=== PATIENT | male | born 1960 | race Caucasian/White ===

== ENCOUNTER 2017-12-19 15:10 | Emergency (ER) | payer OTHER ==
[~2017-12-19] VITALS: Ht 160 cm; Wt 61.2 kg
[2017-12-19 15:19] VITALS: Ht 160 cm; Wt 61.2 kg
[2017-12-19 18:11] LABS: AMPHETAMINE QUAL UR POSITIVE (NEG <=1000)
[2017-12-19 18:54] VITALS: BP 146/94
== END 2017-12-19 18:55 | disposition left against medical advice (07) ==
LOC: ED 15:10
PROVIDERS: Emergency Medicine
DX: T63.441A Toxic effect of venom of bees, accidental (unintentional), initial encounter (principal); R51 Headache; M54.2 Cervicalgia; R53.1 Weakness; Y92.89 Other specified places as the place of occurrence of the external cause
CPT/HCPCS: G0480; J0171; J1200; J2930; J3490

== ENCOUNTER 2018-03-09 21:38 | Emergency (ER) | payer OTHER ==
[~2018-03-09] VITALS: Ht 162.6 cm; Wt 65.3 kg
[2018-03-09 21:50] VITALS: Ht 162.6 cm; Wt 65.3 kg
[2018-03-09 22:55] LABS: BASOPHIL % 0.7 % (0-2); PLATELET COUNT 339 x10^3mcL (130-400); RED CELL DISTRIBUTION WIDTH 13.3 % (11.5-14.5)
[2018-03-09 23:07] LABS: CALCIUM 9.1 mg/dL (8.5-10.1); CARBON DIOXIDE 32.2 mmol/L (21-32); CHLORIDE SERUM 101 mmol/L (98-107); CREATININE SERUM 0.8 mg/dL (0.7-1.3); GFR1 > 60 mL/min; GLUCOSE SERUM 136 mg/dL (74-106); POTASSIUM SERUM 3.7 mmol/L (3.5-5.1); SODIUM SERUM 142 mmol/L (136-145)
[2018-03-09 23:12] LABS: ALBUMIN 3.7 g/dL (3.4-5.0); ALKALINE PHOSPHATASE 83 U/L (46-116); ALT/SGPT 30 U/L (16-63); AMYLASE 52 U/L (25-115); AST/SGOT 21 U/L (15-37); BILIRUBIN TOTAL 0.5 mg/dL (0.20-1.00); LIPASE 103 IU/L (73-393); TOTAL PROTEIN, SERUM 7.6 g/dL (6.4-8.2)
[2018-03-10 01:03] VITALS: BP 145/72
== END 2018-03-10 00:40 | disposition home or self-care (01) ==
LOC: ED 21:38
PROVIDERS: Emergency Medicine
DX: R10.13 Epigastric pain (principal)
CPT/HCPCS: 83880; C9113; J2405; J2765; J3490; J7030

== ENCOUNTER 2018-12-01 21:02 | Inpatient (IN) | payer MEDICAID ==
[~2018-12-01] VITALS: Ht 162.6 cm; Wt 65.1 kg
[2018-12-01 21:06] VITALS: Ht 162.6 cm; Wt 65.1 kg
--- NOTE | 2018-12-01 21:32 | NUR ---
PT PRESENTS TO ER TODAY WITH C/O OF WEAKNESS. PT REPORTS HE FELL AND HIT HIS HEAD AT APPROX 1930 TODAY. PT DENIES LOC AND REPORTS HE FELL DUE TO WEAKNESS. PT ALSO REPORTING DARK BLACK DIARHEA X3 TODAY ALONG WITH VOMITING ALL DAY, UNKNOWN AMOUNT OF TIMES. PT NOT REPORTING ANY PAIN AT THIS TIME BUT REPORTS CP, AND EPIGASTIC PAIN EARLIER TODAY. PT LUNGS SOUNDS ARE CLEAR BILATERALLY IN ALL LOBES ON ASCULTATION. PT APPEARS PALE BUT WARM TO THE TOUCH. PT PLACED ON FULL SAP TECHNICAL ARCHITECT. PT IS A/O X4. RESP EQUAL AND UNLABORED. NO ACUTE DISTRESS NOTED. PT DENIES HX OF GI BLEEDING.
[2018-12-01 22:43] LABS: BASOPHIL % 0.1 % (0-2); PLATELET COUNT 268 x10^3mcL (130-400); RED CELL DISTRIBUTION WIDTH 14.2 % (11.5-14.5)
[2018-12-01 22:47] LABS: rbc morphology (normal/abnorm) ABNORMAL (NORMAL)
[2018-12-01 22:51] LABS: CALCIUM 7.2 mg/dL (8.5-10.1); CARBON DIOXIDE 25.8 mmol/L (21-32); CHLORIDE SERUM 101 mmol/L (98-107); CREATININE SERUM 1.5 mg/dL (0.7-1.3); GFR1 51 mL/min; GLUCOSE SERUM 98 mg/dL (74-106); POTASSIUM SERUM 3.3 mmol/L (3.5-5.1); SODIUM SERUM 136 mmol/L (136-145)
--- NOTE | 2018-12-01 23:02 | NUR ---
PT PROVIDED WITH WATER, OKAYED BY DR SOL.
[2018-12-01 23:05] LABS: ALKALINE PHOSPHATASE 47 U/L (46-116); ALT/SGPT 16 U/L (16-63); AST/SGOT 17 U/L (15-37); BILIRUBIN TOTAL 0.2 mg/dL (0.20-1.00); LIPASE 76 IU/L (73-393)
[2018-12-01 23:13] LABS: ALBUMIN 2.2 g/dL (3.4-5.0)
--- NOTE | 2018-12-01 23:44 | NUR ---
EMERGENCY BLOOD O NEGATIVE INFUSION STARTED PER DR. SOL ORDER DUE TO CRITICAL HGB 5.6 AND HCT 16.
[2018-12-02] VITALS (8 sets, daily range): BP systolic 96–125; BP diastolic 49–72
[2018-12-02 00:08] LABS: CHOLESTEROL/HDL RATIO 3.5; MAGNESIUM 1.9 mg/dL (1.8-2.4); PHOSPHOROUS 4.7 mg/dL (2.5-4.9)
[2018-12-02 00:15] LABS: microscopic required? NO
[2018-12-02 00:17] LABS: FREE T4 1.51 ng/dL (0.76-1.46); FREE THYROXINE INDEX 3.2 ug/dL (1.4-4.5); T4(THYROXINE) 8.3 ug/dL (4.7-13.3)
[2018-12-02 00:26] LABS: urine erythrocyte NEGATIVE (NEGATIVE)
[2018-12-02 00:34] LABS: AMPHETAMINE QUAL UR POSITIVE (See below)
[2018-12-02 00:38] LABS: T3 TOTAL 0.33 ng/mL
--- NOTE | 2018-12-02 00:49 | NUR ---
PT STATES TO FEELING ALOT A BETTER AT THIS TIME. PT HAS REGAINED A LOT OF STRENGTH, ABLE TO HOLD PEN AND DRAW, NO LONGER SHAKY WHEN WRITING.
--- NOTE | 2018-12-02 01:12 | NUR ---
SUMMONED TO PT BEDSIDE BY PT. PT AWAKE AND ALERT, ASKING FOR SOMETHING TO EAT. REVIEW OF RECORDS SHOWS PT IS NPO AT THIS TIME BY ORDER OF ADMITTING DOCTOR. EXPLAINED TO PATIENT. PT VERBALIZED UNDERSTANDING AND REPORTED FRUSTRATION. EMPATHY OFFERED. PT COOPERATIVE WITH PLAN OF CARE.
--- NOTE | 2018-12-02 01:36 | NUR ---
BLOOD TRANSFUSION STARTED; VERIFIED WITH REGIS ROONEY.
--- NOTE | 2018-12-02 02:20 | NUR ---
RECEIVED PT FROM ER VIA GURFRANCISCA ACCOMPANIED WITH NURSE AND EMT, PT SEEN, ALERT AND ORIENTED X 4, C/O OF DIZZINESS BIT DENIES HEADACHE, BREATHING EVEN AND UNLABORED, ON ROOM AIR WITH NO RESP DISTRESS NOTED, SPO2:100% ON ROOM AIR, ON CARE PARTNER WITH ST, DENIES CHEST PAIN, PROTONIX DRIP INFUSING @ 10 ML/HR TO LAC, BLOOD TRANSFUSION ON GOING @ 150 ML/HR TO RAC, NO S&S OF ADVERSE REACTION, GENERALIZED WEAKNESS, SIDE RAILS UP, ABD SOFT AND FLAT WITH ACTIVE BS, LAST BM WAS BLACK STOOL PRIOR ARRIVE IN ED, VOIDING FREELY WITH URINAL, NO OPEN PRESSURE INJURY NOTED, NO DISTRESS NOTED, WILL KEEP TO MONITOR.
--- NOTE | 2018-12-02 03:50 | NUR ---
BLOOD TRANSFUSION COMPLETED, VSS, NO S&S OF ADVERSE REACTION NOTED.
[2018-12-02 05:38] LABS: CALCIUM 7.2 mg/dL (8.5-10.1); CARBON DIOXIDE 28.2 mmol/L (21-32); CHLORIDE SERUM 103 mmol/L (98-107); CREATININE SERUM 1.3 mg/dL (0.7-1.3); GFR1 > 60 mL/min; GLUCOSE SERUM 100 mg/dL (74-106); MAGNESIUM 1.9 mg/dL (1.8-2.4); PHOSPHOROUS 3.9 mg/dL (2.5-4.9); POTASSIUM SERUM 4.1 mmol/L (3.5-5.1); SODIUM SERUM 137 mmol/L (136-145)
[2018-12-02 05:45] LABS: BASOPHIL % 0.2 % (0-2); PLATELET COUNT 252 x10^3mcL (130-400); RED CELL DISTRIBUTION WIDTH 14.3 % (11.5-14.5)
--- NOTE | 2018-12-02 07:05 | NUR ---
REPORT GIVEN TO WALLY-NEVIN, ALL QUESTIONS ANSWERED AND CONCERNS ADDRESSED.
--- NOTE | 2018-12-02 07:58 | NUR ---
RECIEVED PT IN BED WATCHING TV. A/O X 4 AND ABLE TO MAKE NEEDS KNOWN. BAG REPAIRER SHOWING SINUS ARRHYTHMIA/SINUS RHYTHM; NIBP 109/60 MAP 77 HR 98. BREATHING EVEN AND UNLABORED ON ROOM AIR. PT REPORTS "HUNGER PAINS" AND STATES HE HASNT EATEN IN 8 DAYS DUE TO FEELING ILL. PT EDUCATED ON REASIONING FOR NPO ORDER. NO ACTIVE BLEEDING NOTED. PROTONIX DRIP AT 10ML/HR INFUSING VIA RAC. NS AT 100ML/HR INFUSING VIA IV TO LAC. PT CALM AND COOPERATIVE WITH ALL CARE. CALL LIGHT IN REACH. WILL CONT TO MONITOR.
--- NOTE | 2018-12-02 12:35 | NUR ---
DR. GAMBOA AND GI TEAM AT BEDSIDE FOR EGD.
--- NOTE | 2018-12-02 14:57 | NUR ---
PT TRANSFERRED TO [facility] 210 A WITHOUT INCIDENT, RN UYNG AT BEDSIDE TO ACCEPT PT. ALL CARE ENDORSED.
--- NOTE | 2018-12-02 14:58 | NUR ---
RECEIVED PT FROM ICU BY JOSELINE. PT AA/OX4. NO S/S OF ACUTE DISTRESS. DENIES PAIN. NO SOB ON ROOM AIR. RR EVEN/UNLABORED. CHEST EXP. SYMMETRICAL. NO CARTER. NO DIZZINESS. NO CHEST PAIN. IVS WNL TO LAC/RAC. NO REDNESS, NO SWELLING, NO INFILTRATION. PATENT. NO N/V. NO ABD. PAIN. VS STABLE. PT ORIENTED TO SURROUNDINGS. PT USES URINAL TO VOID, URINE CLEAR/YELLOW. BED IN LOW POSITION. CALL LIGHT WITHIN REACH. WILL CONT. TO MONITOR.
--- NOTE | 2018-12-02 18:41 | NUR ---
PT SITTING IN BED, AA/OX4. NO COMPLAINT OF PAIN. NO SOB ON ROOM AIR. NO ABD. PAIN. NO N/V. NO CHEST PAIN. NO SOB ON ROOM AIR. NO BLEEDING AT THIS TIME. PT HAS NOT HAD BM, UNABLE TO COLLECT OCCULT BLOOD SAMPLE. IVS WNL TO RAC/LAC. PATENT. NO REDNESS, NO SWELLING, NO INFILTRATION. IV FLUIDS FLOWING. BED IN LOW POSITION. CALL LIGHT WITHIN REACH. WILL CONT. TO MONITOR.
--- NOTE | 2018-12-02 20:22 | NUR ---
PATIENT RECEIVED IN BED AWAKE,ALERT AND ORIENTED X4, SPEECH CLEAR, DENIES DIZZINESS NOR HEADACHE. BREATHING EVEN AND UNLABORED BS CLEAR,FOUND ON ROOM AIR SAT 97-98%. DENIES CHEST PAINS, TELE#10 SR-ST, HR RANGES FROM HIGH 80"S TO HIGH 100'S.IV SITES - LAC WITH PROTONIX GTT INFUSING AT 8MG/HR ( 10ML/HR) SITE PATENT AND INTACT. RT AC IVF INFUSING AT 100ML/HR. PATIENT DENIES ABDOMINAL DISCOMFORTS NOR PAIN, DENIED N/V/D, TOLERATING CLEAR LIQUID DIET, S/P EGD POST DX; DUODENAL ULCER. VOIDING FREELY, DENIES PAIN UPON URINATION. AMBULATORY WITH STEADY GAIT,PATIENT STILL COMPLAINED OF MILD GENERALIZED WEAKNESS.SAFETY/FALL PRECAUTIONS MAINTAINED. WILL CONTINUE TO MONITOR.
--- NOTE | 2018-12-02 21:23 | NUR ---
INFORMED RE POSITIVE RESULT OF H-PYLORI,HE STATED NO NEED FOR ATB.HE WILL JUST GIVE PRESCRITION ON DISCHARGE.PRIMARY RN INFORMED.
--- NOTE | 2018-12-02 22:04 | NUR ---
GAVE PATIENT MEDICATIONS AND PROVIDED TEACHING. TOLERATED WELL. PATIENT COMPLAINED OF ABDOMINAL PAIN 05/25. MEDICATED. CALL LIGHT WITHIN REACH. INSTRUCTED PATIENT TO NOTIFY NURSE WHEN HE HAS BM, TO COLLECT SAMPLE.
--- NOTE | 2018-12-02 23:03 | NUR ---
PATIENT SLEEPING QUIETLY EASILY AWAKEN STATED PAIN IS BETTER AT 2/10.
--- NOTE | 2018-12-03 03:31 | NUR ---
patient had bm, stool was black and soft, collected and send to lab.offered no complaints.
[2018-12-03 04:26] VITALS: BP 103/61
[2018-12-03 06:05] VITALS: BP 118/73
--- NOTE | 2018-12-03 06:36 | NUR ---
PATIENT SLEPT OFF AND ON DURING THE SHIFT,.NO DIZZINESS NOR SYNCOPAL EPISODE, AMBULATED TO THE BR WITH STEADY GAIT. HAD X2 BLACK SEMI SOFT STOOL, SPECIMEN COLLECTED AND SEND TO LAB. IV SITES NO SIGN OF INFILTRATION.SAFETY/FALL PRECAUTIONS MAINTAINED. WILL ENDORSE CONTINUITY OF CARE TO INCOMING NURSE.
[2018-12-03 06:39] LABS: CALCIUM 7.6 mg/dL (8.5-10.1); CARBON DIOXIDE 26.4 mmol/L (21-32); CHLORIDE SERUM 107 mmol/L (98-107); GFR1 > 60 mL/min; GLUCOSE SERUM 93 mg/dL (74-106); POTASSIUM SERUM 4.2 mmol/L (3.5-5.1); SODIUM SERUM 139 mmol/L (136-145)
[2018-12-03 07:24] LABS: BASOPHIL % 0.4 % (0-2); PLATELET COUNT 258 x10^3mcL (130-400)
[2018-12-03 07:28] LABS: RED CELL DISTRIBUTION WIDTH 14.7 % (11.5-14.5)
--- NOTE | 2018-12-03 08:37 | NUR ---
PATIENT ALERT AND ORIENTED X4, SPEECH CLEAR,DENIES DIZZINESS NOR HEADACHE. BREATHING EVEN AND UNLABORED BS CLEAR ALL RUIZ, ON ROOM AIR. SAFETY 99%. DENIED CHEST PAINS, HR=99BPM. IV SITE NO SIGN OF INFILTRATION.NO ACTIVE BLEEDING AT THIS TIME. OFFERED NO COMPLAINT OF ABDOMINAL PAIN. SAFETY/FALL PRECAUTIONS MAINTAINED. WILL CONTINUE TO MONITOR.
--- NOTE | 2018-12-03 09:04 | NUR ---
SCHEDULED MEDS ADMINISTERED THIS TIME, PATIENT INFORMED ABOUT EACH MEDS ACTIONS AND PURPOSE PRIOR. IN SITTING POSITION DURING ADMINISTRATION. TOOK PILL WITHOUT DIFF. DENIED PAIN THIS TIME. WILL CONTINUE TO MONITOR.
[2018-12-03 09:29] VITALS: BP 116/60
--- NOTE | 2018-12-03 11:26 | NUR ---
SCHEDULED MEDS ADMINISTERED THIS TIME. PATIENT CALM AND COOPERATIVE. IV SITE NO SIGN OF INFILTRATION. WILL CONTINUE TO MONITOR.
--- NOTE | 2018-12-03 12:59 | NUR ---
Assumed care of patient from [facility]. Patient is alert, oriented x4, eating lunch at this time. Denies discomfort. IVF infusing well. Call light within reach. Will continue to monitor and maintain safety.
[2018-12-03 15:47] LABS: PLATELET COUNT 285 x10^3mcL (130-400)
[2018-12-03 15:58] LABS: RED CELL DISTRIBUTION WIDTH 14.6 % (11.5-14.5)
--- NOTE | 2018-12-03 16:00 | NUR ---
EXECUTIVE VICE PRESIDENT AND CHIEF OPERATING OFFICER -DION NOTIFIED ABOUT H/H- 06/04. NO NEW ORDERS RECEIVED. WILL CONTINUE TO MONITOR PATIENT.
[2018-12-03 16:43] LABS: BAND NEUTROPHIL 2 % (0-10); BASOPHIL 0 % (0-2); MONOCYTE 11 % (0-7); PLATELET MORPHOLOGY PLATELETS NORMAL; SEGMENTED NEUTROPHILS 65 % (37-75); ovalocyte/elliptocyte 1+; rbc morphology (normal/abnorm) ABNORMAL (NORMAL)
--- NOTE | 2018-12-03 17:25 | NUR ---
RECEIVED PHONE CALL FROM CRISTIAN WHO SAID THAT PER DR CUEVAS TO CONTINUE TO MONITOR PATIENT TONIGHT AND WILL RE-EVALUATE IN AM. PER DION NO BLOOD TRANSFUSION AT THIS TIME.
[2018-12-03 18:01] VITALS: BP 121/57
--- NOTE | 2018-12-03 19:30 | NUR ---
PT RESTING IN BED, S/P EGD (12/02/18) WITH CAUTERIZATION OF ULCER. NO ACUTE DISTRESS NOTED. AOX4, DENIES CARTER/DIZZINESS. PARTIAL LEFT EYE BLINDNESS. TELE #10, ST 102, DENIES CP. PULSES PALPABLE BILAT, DENIES NUMBNESS/TINGLING IN FEET. RSP EVEN AND UNLABORED ON RA, DENIES SOB. ABD SOFT, ROUND, INTERMITTENT SHOOTING PAIN. PT REPORTS SOME INTOLERANCE WITH HOT LIQUIDS, OK WITH COOLER LIQUIDS. PT REPORTS ABD PAIN RELIEVED WITH PASSING GAS, LBM= BLACK. PT HAS URINAL AT BEDSIDE. MILD GENERALIZED WEAKNESS, AMBULATORY. SKIN INTACT. IV SITE TO LAC PATENT, SALINE LOCKED AT THIS TIME. PT RECEIVING IV PROTONIX, ALL COMFORT AND SAFETY MEASURES PROVIDED FOR, CALL LIGHT WITHIN REACH, BED IN LOWEST POSITION, WILL CONTINUE TO MONITOR.
[2018-12-03 20:50] VITALS: BP 97/61
[2018-12-04] VITALS (8 sets, daily range): BP systolic 79–128; BP diastolic 45–75
--- NOTE | 2018-12-04 05:10 | NUR ---
PT RESTED IN INTERVALS DURING SHIFT, NO ACUTE CHANGES OCCURRING OVERNIGHT. PT MEDICATED X1 WITH NORCO FOR MID EPIGASTRIC PAIN, REPORTED PAIN MANAGED WELL. IV SITE TO LAC REMAINS PATENT, NO REDNESS, SWELLING OR PAIN NOTED. PT DENIES HAVING BM DURING SHIFT. PT RECEIVING PROTONIX IVPB. ALL COMFORT AND SAFETY MEASURES PROVDED FOR, CALL LIGHT WITHIN REACH, BED IN LOWEST POSITION, WILL CONTINUE TO MONITOR.
[2018-12-04 07:04] LABS: CALCIUM 7.9 mg/dL (8.5-10.1); CARBON DIOXIDE 30.9 mmol/L (21-32); CHLORIDE SERUM 105 mmol/L (98-107); CREATININE SERUM 0.9 mg/dL (0.7-1.3); GFR1 > 60 mL/min; GLUCOSE SERUM 96 mg/dL (74-106); POTASSIUM SERUM 3.3 mmol/L (3.5-5.1); SODIUM SERUM 139 mmol/L (136-145)
[2018-12-04 07:24] LABS: BASOPHIL % 0.5 % (0-2); PLATELET COUNT 326 x10^3mcL (130-400)
[2018-12-04 07:48] LABS: RED CELL DISTRIBUTION WIDTH 15.4 % (11.5-14.5)
--- NOTE | 2018-12-04 07:50 | NUR ---
RECEIVED PT IN BED. ASSESSED AND DOCUMENTED. DENIES PAIN THIS TIME. SAFTEY PRECAUTIONS ARE IN PLACE. WILL MONITOR.
[2018-12-04] MEDS ORDERED: LANSOPRAZOLE30 M2 PO (09:23)
[2018-12-04] MEDS ORDERED: FLA500 PO (09:24)
[2018-12-04] MEDS ORDERED: AMOXICILLIN500 M1 PO (09:24)
[2018-12-04] MEDS ORDERED: BIA500 PO (09:24)
[2018-12-04] MEDS ORDERED: FERROUS SULFAT325 M2 PO (09:25)
[2018-12-04] MEDS ORDERED: PHARMASSURE FO0.4 MG PO (09:25)
--- NOTE | 2018-12-04 12:30 | NUR ---
PT RESTING IN BED COMFORTABLY, EATING HIS LUNCH. STABLE.
--- NOTE | 2018-12-04 12:50 | NUR ---
NETWORK INTER[employer] CALLED FOR HELP. FOUND PT SITTING IN THE FLOOR AND HEAD BEND DOWN. VERY LETHARGIC AND BP IS 84/49 WITH MAP 60. PT IS SWEATING AND PALE. HR IS 128. RHYTHM IS ST WITH SLIGHT T WAVE DEPRESSION. PT VOMITED SMALL AMOUNT OF BLOOD IN THE FLOOR AND INCONTINENT OF URINE. 3 STAFF ASSISTED PT TO BACK IN THE BED. BS IS 180. BP RECHECKED IS 88/56 WITH MAP 53. PT VERY WEAK BUT SLOWLY RESPONDNG VERBALLY, PT WANTED TO HAVE BM. PUT HIM ON BEDPAN. RECHECKED BP AGAIN AT 1305 90/51. RAPID RESPONSE CALLED AT 1255 WITH BP 84/49. CHARGE NURSE SPOKE WITH DION AND SHE TOLD HER EVERYTHING. SHE GAVE HER ORDER FOR 500 BOLUS, STARTED AT 1305 AND RECHECKED BP AT 1310 92/54 WITH MAP 62 AND HR 113. CAME AND ASSESSED PT. PT DENIES ANY PAIN, NO INJURY OR ABRASION NOTED. PUTTING ORDER FOR XRAYS AND EKG. EKG SHOWS ST. PT DENIES CHEST PAIN. SUPERVISIOR AND RAPID RESPOND TEAM CAME AND CHECKED THE PT. PT IV WAS OUT. INSERTED NEW IV. TELE IS COMING BECAUSE OF PT WAS SWEATING. PUT NEW LEADS AND READING ST. CAMOUFLAGE ASSEMBLER DION AWARE RHYTHM IS ST WITH T DEPRESSION. PT VERY RESPONDING AND GETTING AWAKE MORE NOW AND HE SAID AFTER HAVING BM HE FELT LOT BETTER, BM IS DARK BLACK AND CAMOUFLAGE ASSEMBLER DION AWARE ABOUT THAT. WILL CONTINUE MONITOR.
--- NOTE | 2018-12-04 13:05 | NUR ---
Paradise WASSERMAN CALLED AND MADE AWARE THAT PT HAD FALLEN AND WAS DIAPHERETIC WITH LOW B/P 88/56 MAP 53. WITH ONGOING RAPID RESPONSE AT BEDSIDE. OBTAINED ORDER FOR FLUID BOLUS OF 500ML/HR.
--- NOTE | 2018-12-04 13:10 | NUR ---
DR. LEGGETT WAS CALLED TO SEE IF SHE MAY PERFORM BESIDE ASSESSMENT SINCE PT WAS NOT ON FLOOR AND WOULD NO RETURN FOR AN HR. MD AT BEDSIDE AT THIS TIME EVALUATING PT. STATED SHE WOULD ORDER EKG, X-RAYS. 1315: PT MORE ALERT AT THIS TIME. DOES NOT RECALL INCIDENT STATED "I NEEDED TO PEE, AND I GOT DIZZY. I MUST HAVE BLACKED OUT." PT STATED HE FELT BETTER WITH ONGOING FLUID. STATED "I COULD FEEL A LOT BETTER, I COULD SEE AGAIN." PT WITH BEDPAN IN PLACE HAVING BM AT THIS TIME.
--- NOTE | 2018-12-04 13:30 | NUR ---
PT IS AWAKE AND VERBALLY RESPONDING, STABLE. BOLUS 500 IS INFUSING. RECHECKED PT BP 96/60 WITH MAP 71 AND HR 109. WILL CONTINUE MONITOR.
--- NOTE | 2018-12-04 14:05 | NUR ---
RECHECKED PT BP AFTER BOLUS 103/62 WITH MAP 72 AND HR 108. PT IS STABLE. WILL CONTINUE MONITOR.
--- NOTE | 2018-12-04 15:00 | NUR ---
DION CAME TO SEE THE PT. REQUESTED FOR IF SHE WANT TO ORDER CBC NOW, SHE SAID SHE WILL PUT ORDER FOR TOMORROW AM LAB'S.
--- NOTE | 2018-12-04 15:00 | NUR ---
BICYCLE I ASSEMBLER MUTUC AT BEDSIDE. EVALUATING PT UPDATED ON EVENT AND CONDITION BEFORE AND AFTER. UPDATED ON ORDERS BY DR. LEGGETT. B/P STABLE WITH LAST B/P 106/60 MAP 72 HR 100 AT 1440. NO NEW ORDERS, D/C HELD, CONT TO MONITOR.
--- NOTE | 2018-12-04 16:25 | NUR ---
PT BP 86/43 WITH MAP 54. RECHECKED AGAIN 79/45 WITH MAP 53. CHARGE NURSE SPOKE WITH KOSTA ASHLEY AND RECEIVED ORDER FOR 500 BOLUS AND STARTED. RECHECKED BP DURING BOLUS 88/53 WITH MAP 63. PT IS CRYING, UNCOMFORTABLE AND ROLLING AROUND IN THE BED, LYING ON HIS ABDOMEN. ASKED PT MULTIPLE TIME IS HE IN PAIN BUT PT DOESNOT SAY ANYTHING HE SAID HE WANT TO STAY ON HIS ABDOMEN NOW. STAYING WITH PT AND CLOSELY MONITERING THE PT.
--- NOTE | 2018-12-04 16:38 | NUR ---
MADE AWARE BY ATTENDING NURSE PT WITH B/P 79/45 MAP 53. LITHOGRAPHIC PRINTING MACHINIST Paradise BRAR CALLED AND MADE AWARE WITH ORDERS FOR BOLUS 500ML TO BE GIVEN NOW.
--- NOTE | 2018-12-04 17:00 | NUR ---
SAP PI DEVELOPER ZONIA CALLED MADE AWARE PT C/O SHARP OFF AND ON ABD PAIN WITH ONGOING NS BOLUS AT 500ML/HR AFTER 20MIN B/P REMAINS 75/42 MAP 58, HR 112. RECEIVED ORDER TO TRANSFER TO ICU. ICU CALLED PT TO BE TRANSFERED TO BED ICU 4.
--- NOTE | 2018-12-04 17:13 | NUR ---
BOLUS IS GOING, RECHECKED BP NOW 96/56 WITH MAP 65. HR 82. PT IS VERY WEAK. CHARGE NURSE SPOKE WITH VICE PRESIDENT OF COMPLIANCE AND PT WILL TRANSFER TO ICU.
--- NOTE | 2018-12-04 17:37 | NUR ---
RECEHECKED PT BP AFTER 500 BOLUS 99/62 WITH MAP 71. PT STILL LOOK WEAK BUT VERBALLY RESPONDING MORE. STABLE.
--- NOTE | 2018-12-04 17:44 | NUR ---
RECHECKED PT BP 90/55 WITH MAP 65 AND HR 83. STABLE BUT STILL WEAK AND PALE. REPORT GIVEN TO ICU NURSE AND GETTING READY FOR TRANSFER PT TO ICU.
--- NOTE | 2018-12-04 17:50 | NUR ---
TRANSFERED PT TO ICU IN STABLE CONDITION. BP=91/54 WITH MAP 72 BUT PT STILL VERY WEAK.
--- NOTE | 2018-12-04 18:22 | NUR ---
RECEIVED PATIENT FROM THE [address] [place] [address] AND PATIENT IS STABLE AND BP AT 114/55 AND PATIENT IS OFFERED LIQUID DIET AND STATE HAS IS HUNGERY. THE REPORT FROM THE STAFF IN [facility] WAS THAT THE PATIENT WAS HAVING TROUBLE MAINTAINING HIS BLOOD PRESSURE. HE HAD RECEIVED BOLUS AND SHORTLY AFTER HE HAD DROPPED THE BP AGAIN HIS BP WAS IN THE 70'S AT ONE POINT AND THE NURSE CALLED THE TICKET TAKER TO ADVISE AND HE WAS TRANSFERED TO ICU. PATIENT WAS PLACED ON MONITORS AND 02 AND NTOED THE PATIENT HAD BEEN ON PROTONIX IVPB AND CONTINUOUS. PATIENT HAS PATIENT IV AQND IS ALERT AND ORIENTED TIMES FOUR. HE HAS DIMINIHSED BUT CLEAR BREATH SOUNDS AND IS LEAN IN APPEARANCE BUT SKIN IS INTACT. XRAYS PENDING AND AWAITING RESULTS. PATIENT HAS BEEN MADE COMFORTABLE AND HAS REMINDED TO DEEP BREATH OFTEN. NOTED H AND H IS LOW AND HAD RECEIVED TRANSFUSION PRIOR AND ALSO HAS HAD CAUTERIZATION WITH DR BIGGS. FOR ANOTHER EGD WITH [facility] AGAIN TOMORROW. WILL ENDORSE TO THE NEXT SHIFT.
--- NOTE | 2018-12-04 18:59 | NUR ---
PATIENT'S BP REMAINS STABLE AT 129/82, MAP 97. WILL CONTINUE TO MONITOR.
--- NOTE | 2018-12-04 19:20 | NUR ---
REC'D PT FROM DAY RN. PT RESTING IN BED. AAOX4, SPEECH CLEAR, FOLLOWS COMMANDS. NO COMPLAINTS AT THIS TIME. DENIES ANY WEAKNESS, DIZZINESS, OR FEELING FAINT. ONLY STATES HE WANTS TO SLEEP. NO EDEMA NOTED. TELE 4, ST. HR 115. DENIES CP. BREATHING EVEN/UNLABORED ON RA. SPO2 98%. ABD SOFT/ROUND. DENIES ABD PAIN, TENDERNESS, OR N/V. REPORTS LAST BM TODAY, BLACK AND LOOSE/LIQUID. SKIN INTACT. IV TO LAC PATENT AND INFUSING NS @ 70 ML/HR AND PROTONIX @ 10 ML/HR. SITE WNL. CALL LIGHT WITHIN REACH, BED AT LOWEST POSITION. PT TO HAVE EGD IN AM. CONSENTS OBTAINED. NPO AFTER MN. PT VERBALIZED UNDERSTANDING. CURRENTLY TOLERATING FULL LIQUID DIET.
--- NOTE | 2018-12-04 21:25 | NUR ---
PT C/O SHARP EPIGASTRIC PAIN. NORCO GIVEN PER ORDER. WILL MONITOR FOR RELIEF.
[2018-12-05] VITALS (8 sets, daily range): BP systolic 102–146; BP diastolic 56–80
[2018-12-05 00:48] LABS: BASOPHIL % 0.4 % (0-2); PLATELET COUNT 285 x10^3mcL (130-400)
--- NOTE | 2018-12-05 01:48 | NUR ---
DR. BARRERA MADE AWARE OF H/H DROP FROM 7.6/20 TO 5.1/15.1. ALSO MADE AWARE TYPE AND SCREEN HAS . PT CURRENTLY RESTING IN BED WITH EYES CLOSED. LAYING ON R SIDE. APPEARS TO BE SLEEPING. VSS. WILL CONTINUE TO MONITOR.
[2018-12-05 01:56] LABS: rbc morphology (normal/abnorm) ABNORMAL (NORMAL)
--- NOTE | 2018-12-05 02:50 | NUR ---
REC'D CALL FROM LAB. TYPE AND SCREEN AND pRBC SHOULD BE DONE IN ABOUT 20 MIN. PT PREMEDICATED WITH TYLENOL AND BENADRYL. NO COMPLAINTS AT THIS TIME.
--- NOTE | 2018-12-05 03:32 | NUR ---
LAB HAVING A DIFFICULT TIME WITH PT'S TYPE AND SCREEN. EMERGENT O- BLOOD TO BE GIVEN INSTEAD. DR. HALEY MADE AWARE AND SIGNED PAPERWORK.
--- NOTE | 2018-12-05 03:48 | NUR ---
pRBC INITIATED @ 60 ML/HR WITNESSED BY URSULA ROONEY. IV TO LAC PATENT. PT AWAKE/ALERT WITHOUT ANY COMPLAINTS AT THIS TIME.
--- NOTE | 2018-12-05 04:03 | NUR ---
NO ADVERSE REACTIONS NOTED. VSS. TRANSFUSION RATE INCREASED TO 150 ML/HR. TO RUN OVER 2 HRS PER ORDER. WILL CONTINUE TO MONITOR.
--- NOTE | 2018-12-05 06:05 | NUR ---
BLOOD TRANSFUSION COMPLETED. FLUSHING WITH NS. NO ADVERSE REACTIONS NOTED. VSS. NO COMPLAINTS FROM THE PT. AWAKE AND WATCHING TV. LAB TO DRAW BLOOD AROUND [id number]
--- NOTE | 2018-12-05 06:15 | NUR ---
LAB AT BEDSIDE TO COLLECT AM LABS. PLAN FOR EGD TODAY. CHECKLIST COMPLETED. NPO SINCE MN. WILL ENDORSE TO DAY RN.
[2018-12-05 06:46] LABS: CALCIUM 7.3 mg/dL (8.5-10.1); CARBON DIOXIDE 28.2 mmol/L (21-32); CHLORIDE SERUM 107 mmol/L (98-107); CREATININE SERUM 0.9 mg/dL (0.7-1.3); GFR1 > 60 mL/min; GLUCOSE SERUM 92 mg/dL (74-106); POTASSIUM SERUM 4.3 mmol/L (3.5-5.1); SODIUM SERUM 137 mmol/L (136-145)
[2018-12-05 07:15] LABS: BASOPHIL % 0.5 % (0-2); PLATELET COUNT 267 x10^3mcL (130-400)
--- NOTE | 2018-12-05 07:27 | NUR ---
[facility] DR. LEGGETT B 6.6. AWAITING FOR PAGE BACK.
--- NOTE | 2018-12-05 07:36 | NUR ---
TELEPHONED BLOOD BANK AND INFORMED THEM PATIENT IN NEED OF 1 UNIT PRBC. THEY WILL CALL WHEN UNIT IS READY.
--- NOTE | 2018-12-05 07:45 | NUR ---
THE PATIENT AWAKE AND ORIENTED TO PERSON, PLACE AND TIME. PATIENT DENIED ANY NAUSEA/VOMITING OR PAIN AT THIS TIME. IVF NS @ 70 CC/HR AND PROTONIX 10MG/HR VIA H/L TO LAC. TELE # 4 READS SINUS RHYTHMS WITH EPISODES OF SINUS TACHYCARDIA. CALL LIGHT WITHIN REACH. SIDE RAILS UP X3. BED WAS AT LOWEST POSITION, AND ALARM WAS ON.
--- NOTE | 2018-12-05 08:42 | NUR ---
GI NURSE AT BED SIDE. MACHINE FOR EGD SET UP.
--- NOTE | 2018-12-05 09:00 | NUR ---
DR. GAMBOA WAS AT BEDSIDE FOR EGD PROCEDURE.
--- NOTE | 2018-12-05 09:18 | NUR ---
EGD COMPLETED. DR. GAMBOA WAS AT THE STATION.
--- NOTE | 2018-12-05 09:20 | NUR ---
REPORT RECEIVED FROM HARLAN ROONEY. PATIENT RECEIVED 100 MCG FENTANYL AND 7 MG VERSED DURING COLONOSCOPY. DR CUEVAS CAUTERIZED LARGE AREAS OF OF DUODENUM THAT HAD STARTED BLEEDING AGAIN. PATIENT TOLERATED PROCEDURE WELL. MAY BE STARTED ON CLEAR LIQUID DIET. PATIENT WILL BE TRANSFUSED WITH 2 UNITS PRBC'S TODAY.
--- NOTE | 2018-12-05 10:00 | NUR ---
ANOTHER H/L #20G WAS INSERTED TO THE PATIENT'S LEFT HAND FOR MORE ACCESS.
--- NOTE | 2018-12-05 10:35 | NUR ---
DR. CEDILLO AND THE TEAM WERE MAKING ROUND TO SEE THE PATIENT.
--- NOTE | 2018-12-05 10:53 | NUR ---
HUNG 1 UNIT OF PRBC'S AT 1035. VERIED PT NAME, MRN #, BLOOD TYPE, UNIT #, EXP DATE, ARM BAND NUMBER AT BEDSIDE WITH MIN RN. VS STABLE. BLOOD RUNNING AT 30CC/HR. MONITORED FOR ADVERSE RXNS.
--- NOTE | 2018-12-05 10:58 | NUR ---
CHECKED VS AFTER 15 MINUTES OF INFUSION. VS STABLE. NO S/SX OF ADVERSE RXNS NOTED. INFUSION OF BLOOD CHANGED TO 120CC/HR. WILL CONTINUE TO MONITOR.
--- NOTE | 2018-12-05 11:00 | NUR ---
THE PATIENT WAS DROWSY S/P EGD, BUT AROUSABLE EASILY WITH VERBAL STIMULUS AND ORIENTED TO PERSON, PLACE AND . THE 1ST UNIT OF PRBC IS INFUSING NOW.
[2018-12-05 12:32] LABS: ovalocyte/elliptocyte 1+
--- NOTE | 2018-12-05 13:00 | NUR ---
THE 1ST PRBC WAS COMPLETED. THE PATIENT DENIED ANY ADVERSE REACTION VS WAS CHECKED: TEMP 99.0, HR 101, BP 112/80, RR 16, O2 SAT 100%. WILL MEDICATE THE PATIENT WITH LASIX 20MG IVP BEFORE THE 2ND UNIT OF PRBC IS STARTED.
--- NOTE | 2018-12-05 13:25 | NUR ---
THE 2ND UNIT OF PRBC WAS INITIATED: TEMP 99.0, HR 95, BP 124/78, RR 14, AND SAT 100%. INSTRUCTED THE PATIENT TO NOTIFY THE NURSE WITH ANY ADVERSE REACTION.
--- NOTE | 2018-12-05 13:40 | NUR ---
RECHECKED THE PATIENT 15 MIN AFTER THE 2ND PRBC WAS STARTED: TEMP 98.7, HR 103, BP 118/64, RR 17, O2 SAT 98%. THE PATIENT DENIED ANY ADVERSE REACTION. CONTINUE TO MONITOR.
[2018-12-05 14:41] LABS: ovalocyte/elliptocyte 1+; rbc morphology (normal/abnorm) ABNORMAL (NORMAL)
--- NOTE | 2018-12-05 16:00 | NUR ---
2ND UNIT OF PRBC WAS COMPLETED. THE PATIENT DENIED ANY ADVERSE REACTION. VS: TEMP 98.6, HR 91, BP 119/67, RR 14, O2 SAT 100%.
--- NOTE | 2018-12-05 17:57 | NUR ---
REPORT WAS GIVEN TO NEVIN TOBAR FROM [facility] UNIT. ALL CONCERNS WERE ADDRESSED. PATIENT WILL BE TRANSFERRED TO ROOM 207B.
--- NOTE | 2018-12-05 18:20 | NUR ---
THE PATIENT WAS TRANSFERRED TO ROOM 207B ON [facility] UNIT.
--- NOTE | 2018-12-05 18:39 | NUR ---
PATIENT ARRIVED FROM ICU VIA GURNEY. PATIENT DENIES PAIN AT THIS TIME. VS STABLE BP: 128/77 MAP 94 HR 94 PULSE OX 97% ON ROOM AIR. IV SITE CDI, NO REDNESS, SWELLING OR PAIN. PROTONIX INFUSING AT 10ML/HR TO L HAND AND NS INFUSING AT 70ML/HR TO LAC. URINAL AT BEDSIDE. PATIENT UNDERSTANDS TO CALL FOR ASSISTANCE WHEN NEEDED. NO RESP. DISTRESS NOTED. CALL LIGHT WITHIN REACH, BED IN LOW POSITION. WILL ENDORSE REPORT TO NIGHT NURSE.
--- NOTE | 2018-12-05 19:23 | NUR ---
PT RECIEVED FROM THE DAY SHIFT RN. PT IS RESTING IN BED WITH EYES CLOSED AT THIS TIME. NO ACUTE DISTRESS NOTED. PROTONIX IV INFUSING AT THIS TIME. NS INFUSING AT 70 ML/HR INFUSING AT THIS TIME. SAFETY AND COMFORT MEASURES MAINTAINED, BED IN LOWEST POSITION, CALL LIGHT WITHIN REACH. WILL CONTINUE TO MONITOR AT THIS TIME.
--- NOTE | 2018-12-05 20:15 | NUR ---
PT IS STATING SEEING BLOOD IN HIS EYES. AFTER ASSESSMENT THERE IS NO BLOOD IN PATIENT EYES. PT STATES " I AM SEEING BLOOD FLOATING IN MY EYES, I KNOW ITS THERE. " PT IS ALERT AND ORIENTED X4. NO COMPLAINTS OF PAIN AT THIS TIME. DR BARRERA MADE AWARE AND NO FURTHER ORDERS AT THIS TIME.
--- NOTE | 2018-12-05 23:53 | NUR ---
PT IS RESTING IN BED WITH EYES CLOSED AT THIS TIME. PT PROTONIX DRIP IS INFUSING WELL AT THIS TIME. IV IS INTACT. NO ACUTE DISTRESS NOTED. NO SOB NOTED. SAFETY AND COMFORT MEASURES MAINTAINED, BED IN LOWEST POSITION, CALL LIGHT WITHIN REACH. WILL CONTINUE TO MONITOR AT THIS TIME.
--- NOTE | 2018-12-06 03:14 | NUR ---
PT COMPLAINING OF ABDOMINAL PAIN. MEDICATED WITH NORCO PRN. PT IS ALERT AND ORIENTED X4, IV IS INFUSING WELL AT THIS TIME. SAFETY AND COMFORT MEASURES MAINTAINED, BED IN LOWEST POSITION, CALL LIGHT WITHIN REACH. WILL CONTINUE TO MONITOR AT THIS TIME.
--- NOTE | 2018-12-06 05:04 | NUR ---
PT HAS RESTED IN INTERMITTENT INTERVALS THROUGHOUT THE SHIFT. PT HAS BEEN CALM AND COOPERATIVE BUT ANXIOUS AT TIMES WITH CARE. PT COMPLAINED OF ABDOMINAL PAIN AND WAS MEDICATED WITH PRN NORCO ( SEE MAR). IV SITE IS INFUSING WELL AND INTACT. NO ACUTE DISTRESS NOTED AT THIS TIME. SAFETY AND COMFORT MEASURES MAINTAINED, BED IN LOWEST POSITION, CALL LIGHT WITHIN REACH. WILL CONTINUE TO MONITOR AT THIS TIME.
[2018-12-06 05:30] VITALS: BP 98/54
[2018-12-06 06:50] LABS: BASOPHIL % 0.8 % (0-2); PLATELET COUNT 310 x10^3mcL (130-400)
[2018-12-06 06:52] LABS: CALCIUM 7.6 mg/dL (8.5-10.1); CARBON DIOXIDE 29.3 mmol/L (21-32); CHLORIDE SERUM 105 mmol/L (98-107); CREATININE SERUM 0.9 mg/dL (0.7-1.3); GFR1 > 60 mL/min; GLUCOSE SERUM 84 mg/dL (74-106); POTASSIUM SERUM 3.7 mmol/L (3.5-5.1); SODIUM SERUM 140 mmol/L (136-145)
[2018-12-06 07:02] LABS: RED CELL DISTRIBUTION WIDTH 16.4 % (11.5-14.5)
--- NOTE | 2018-12-06 07:39 | NUR ---
RECEIVED PATIENT AWAKE/ALERT IN BED, WAS AGITATED AND ANGRY, PATIENT WANT TO LEFT, STATED " I AM HUNGRY AND YOUR NOT FEEDING ME, I' TIRED OF CLEAR LIQUID". [employer] DEVELOPER REMOVED IV FOR PATIENT, GAVE PATIENT AMA FORM. TELE # [id number] REMOVED.
--- NOTE | 2018-12-06 07:41 | NUR ---
DR. BARRERA WAS NOTIFIED PATIENT SIGNED AMA. PATIENT LEFT AFTER ATE HIS CLEAR LIQUID DIET.
== END 2018-12-06 08:05 | disposition left against medical advice (07) | DRG 241 ==
LOC: ED 21:02 → DU 22:08 → IC 22:08 → DU 12-02 14:45 → IC 12-04 17:56 → DU 12-05 18:37
PROVIDERS: Emergency Medicine; Family Medicine; General Practice; Internal Medicine; ADMIT Internal Medicine
PROC: 0W3P8ZZ Control Bleeding in Gastrointestinal Tract, Via Natural or Artificial Opening Endoscopic (ICD-10-PCS; 2018-12-02 12:30)
PROC: 0DB68ZX Excision of Stomach, Via Natural or Artificial Opening Endoscopic, Diagnostic (ICD-10-PCS; 2018-12-02 12:30)
PROC: 0W3P8ZZ Control Bleeding in Gastrointestinal Tract, Via Natural or Artificial Opening Endoscopic (ICD-10-PCS; principal; 2018-12-05 08:30)
DX: K26.0 Acute duodenal ulcer with hemorrhage (principal); N17.0 Acute kidney failure with tubular necrosis; E43 Unspecified severe protein-calorie malnutrition; D62 Acute posthemorrhagic anemia; F15.10 Other stimulant abuse, uncomplicated; F12.10 Cannabis abuse, uncomplicated; F10.21 Alcohol dependence, in remission; E83.51 Hypocalcemia; D72.829 Elevated white blood cell count, unspecified; E87.6 Hypokalemia; K20.8 Other esophagitis; Z68.26 Body mass index [BMI] 26.0-26.9, adult
CPT/HCPCS: 43235; 82962; 83880; 84439; 87804; 90715; C9113; G0480; J0171; J1200; J1610; J1940; J2250; J2310; J2405; J2543; J3010; J3370; J3490; J7030; J7040; J7050; P9016; Q0092; Q0163

== ENCOUNTER 2018-12-08 01:57 | Inpatient (IN) | payer MEDICAID ==
[~2018-12-08] VITALS: Ht 162.6 cm; Wt 64.0 kg
[~2018-12-08 01:57] MED LIST: AMOXICILLIN500 M1 PO; BIA500 PO; FERROUS SULFAT325 M2 PO; FLA500 PO; LANSOPRAZOLE30 M2 PO; PHARMASSURE FO0.4 MG PO
[2018-12-08 02:09] VITALS: Ht 162.6 cm; Wt 64.0 kg
--- NOTE | 2018-12-08 02:39 | NUR ---
EKG ATTEMPTED, PT SHIVERING TOO MUCH TO GET ACCURATE READING. MD AWARE.
--- NOTE | 2018-12-08 02:40 | NUR ---
PT CAME TO THE ED TODAY BY AMBULANCE WITH C/O GI BLEED AND ABD PAIN. PT WAS RECENTLY ADMITTED TO THE ICU FOR GI BLEEDING. PT WAS DOWN GRADED TO MEDSUR THEN LEFT HOSPITAL AMA.
[2018-12-08 02:42] LABS: BASOPHIL % 0.4 % (0-2); PLATELET COUNT 309 x10^3mcL (130-400)
[2018-12-08 02:45] LABS: RED CELL DISTRIBUTION WIDTH 16.8 % (11.5-14.5)
[2018-12-08 02:47] LABS: CALCIUM 7.6 mg/dL (8.5-10.1); CARBON DIOXIDE 13.4 mmol/L (21-32); CREATININE SERUM 1.9 mg/dL (0.7-1.3); POTASSIUM SERUM 3.8 mmol/L (3.5-5.1); rbc morphology (normal/abnorm) ABNORMAL (NORMAL)
[2018-12-08 02:52] LABS: BILIRUBIN TOTAL 0.32 mg/dL (0.20-1.00)
[2018-12-08 02:54] LABS: TOTAL PROTEIN, SERUM 4.4 g/dL (6.4-8.2)
[2018-12-08 02:55] LABS: ALBUMIN 1.8 g/dL (3.4-5.0)
--- NOTE | 2018-12-08 03:00 | NUR ---
ONE UNIT OF O NEGATIVE BLOOD GIVEN TO PT RAPIDLY WITH PRESSURE BAD. PT ALSO RECIEVED 500ML NS WITH UNIT OF BLOOD.
--- NOTE | 2018-12-08 03:12 | NUR ---
PT HAS CENTRAL LINE PLACED TO THE LEFT FEMORAL BY DR. ANTHONY. CENTRAL LINE PATIENT. SUTURED IN PLACE BY DR. ANTHONY.
--- NOTE | 2018-12-08 03:14 | NUR ---
AT 0245 PT PLACED ON WARMER WITH RECTAL THERMOMETER
--- NOTE | 2018-12-08 04:45 | NUR ---
2ND UNIT PRBC STARTED AT THIS TIME. VITAL SIGNS 98.0, 127, 87/690, 18, 100% ON O2 2LPM VIA NC.
--- NOTE | 2018-12-08 04:45 | NUR ---
XRAY AT BEDSIDE
--- NOTE | 2018-12-08 05:00 | NUR ---
NO ADVERSE REACTION NOTED. PTS VITAL SIGNS 98.3, 115, 106/61, 22, 97%.
--- NOTE | 2018-12-08 05:07 | NUR ---
LAB AT BEDSIDE
--- NOTE | 2018-12-08 05:20 | NUR ---
PT TRANSFERRED FROM ER VIA [facility] ACCOMPANIED BY MYSELF AND EMT. PT IS A/O X4, SPEECH CLEAR AND APPROPRIATE. PERRLA NOTED. LUNG SOUNDS CTA. RESPS E/U ON O2 2LPM VIA NC. CHEST RISE EQUAL AND SYMMETERICAL. DENIES ANY N/V AT THIS TIME. ABD SOFT, FLAT, NONTENDER TO TOUCH. BOWEL SOUNDS ACTIVE. L FEMORAL CVC INTACT, PORTS PATENT, DSG CDI. LAC IV INTACT AND PATENT, DSG CDI. PROTONIX IV GTT INFUSING @ 10ML/HR. 2ND UNIT OF PRBC INFUSING @ 150ML/HR, NO ADVERSE REACTION NOTED. SKIN WARM DRY TO TOUCH. PULSES PALPABLE X4. CAP REFILL < 3 SECS. NO EDEMA NOTED. PT ABLE TO MOVE ALL EXT. GEN WEAKNESS NOTED. PT TEACHING PROVIDED REGARDING CALL LIGHT USE. VERBALIZED UNDERSTANDING. CALL LIGHT WITHIN REACH. WILL CONTINUE TO MONITOR.
[2018-12-08 05:33] VITALS: BP 150/64
[2018-12-08 05:38] LABS: UA SPECIFIC GRAVITY 1.025 (1.005-1.035); microscopic required? YES; urine erythrocyte 1+ (NEGATIVE)
[2018-12-08 05:42] LABS: MAGNESIUM 2.6 mg/dL (1.8-2.4); PHOSPHOROUS 7.3 mg/dL (2.5-4.9)
[2018-12-08 05:43] LABS: CHOLESTEROL/HDL RATIO 4.4
[2018-12-08 05:51] LABS: T3 TOTAL 1.06 ng/mL
[2018-12-08 05:51] LABS: AMPHETAMINE QUAL UR POSITIVE (See below)
[2018-12-08 05:52] LABS: FREE T4 1.21 ng/dL (0.76-1.46); FREE THYROXINE INDEX 2.9 ug/dL (1.4-4.5); T4(THYROXINE) 7.3 ug/dL (4.7-13.3)
--- NOTE | 2018-12-08 06:00 | NUR ---
PT HAD LARGE SEMI FORMED, BLACK TARRY COLORED BM.
--- NOTE | 2018-12-08 06:35 | NUR ---
PTS BLOOD COMPLETE. VITAL SIGNS 107/62, 112, 14, 99.1, 100%.
--- NOTE | 2018-12-08 07:18 | NUR ---
RECEIVED REPORT FROM AKILA ROONEY. WILL CONTINUE CARE. BLOOD DRAWN FROM FEMORAL CENTRAL LINE FOR LABS. NO BLOOD RETURN NOTED TO [place].
[2018-12-08 07:27] LABS: BASOPHIL % 0.2 % (0-2); PLATELET COUNT 210 x10^3mcL (130-400)
[2018-12-08 07:29] LABS: RED CELL DISTRIBUTION WIDTH 16.8 % (11.5-14.5)
--- NOTE | 2018-12-08 07:35 | NUR ---
SPOKE WITH DR LEGGETT AND REPORTED HGB 6.8 AND HCT 20. NEW ORDER RECEIVED TO TRANFUSE 2 UNITS PRBC.
[2018-12-08 08:00] VITALS: BP 144/74
--- NOTE | 2018-12-08 08:05 | NUR ---
UNIT NUMBER 3 STARTED @ 0805 V/S T 99.3 BP 126/71 HR 111 R 17 OS SAT 100%
--- NOTE | 2018-12-08 08:20 | NUR ---
0820 DID 15 minute recheck on started PRBC 0820 rechecked vital signs T 9908 BP 125/63 HR 104 R 12 O2 SAT 100% INCREASED TRANSFUSION RATE FROM 75 TO 125ML/HR
[2018-12-08 10:18] LABS: rbc morphology (normal/abnorm) ABNORMAL (NORMAL)
--- NOTE | 2018-12-08 10:24 | NUR ---
EGD BEING DONE AT BEDSIDE BY DR. GAMBOA. PT CONSENT SIGNED.
--- NOTE | 2018-12-08 11:12 | NUR ---
STARTED 4TH UNIT OF PRBC'S AT 1112 STARTED RATE OF 75CC/HR V/S T 98.4 BP 109/56 HR 109 R 16 PO2 100%
--- NOTE | 2018-12-08 11:27 | NUR ---
AFTER 15 MIN OF PRBC'S INFUSING AT 1127 V/S T 98.2 B/P 114/60 HR 105 R 16 P02 100% PT NORM WELL. NO S/SX OF ADVERSE REACTIONS NOTED
[2018-12-08 12:03] VITALS: BP 116/61
--- NOTE | 2018-12-08 12:23 | NUR ---
DR CORONA AT BEDSIDE TO SPEAK WITH PATIENT REGARDING POSSIBLE SURGERY. PATIENT VERY LETHARGIC S/P SEDATION RECEIVED DURING EGD. UNABLE TO OBTAIN CONSENT AT THIS TIME.
--- NOTE | 2018-12-08 13:32 | NUR ---
BLOOD TRANSFUSION COMPLETE. NO ADVERSE REACTIONS NOTED.
--- NOTE | 2018-12-08 13:46 | NUR ---
IN PATIENT ROOM DISCUSSING SURGICAL PROCEDURE. PATIENT AGREED TO PROCEDURE TO BE PERFORMED
[2018-12-08 14:19] LABS: BASOPHIL % 0.9 % (0-2); PLATELET COUNT 207 x10^3mcL (130-400)
[2018-12-08 14:20] LABS: RED CELL DISTRIBUTION WIDTH 16.1 % (11.5-14.5)
--- NOTE | 2018-12-08 14:30 | NUR ---
CORDUROY BRUSHER OPERATORNEVIN MCADAMS AND OR GENET TRANSFERRRING PATIENT TO OR AT THIS TIME.
--- NOTE | 2018-12-08 16:37 | NUR ---
PT STILL IN OR FOR PROCEDURE. ASSESSMENT AT 1600 NOT COMPLETED BECAUSE OF PT'S ABSENCE.
--- NOTE | 2018-12-08 18:15 | NUR ---
PT RETURNED FROM OR. REPORT RECEIVED. PT RECEIVED GASTRIC RESECTION WITH GASTRO ENTEROSTOMY PT HAS MIDLINE INCISION COVERED WITH DRESSING AND ABDOMINAL BINDER. IN OR PT RECEIVED 2800 CC OF LR EBL 450CC DO CATHETER PLACED IN OR WITH 1000CC OUT NGT TO L NARE AND ATTACHED TO LOW INTERMITTENT SUCTION PT RETURNED TO UNIT ATTACHED TO VICE PRESIDENT PLANNING VS BP 140/74 HR 100 R16 02 SAT 100% ON RA
--- NOTE | 2018-12-08 18:21 | NUR ---
PT IN BED SLOWLY WAKING UP AFTER PROCEDURE. SPONTANEOUSLY OPENING EYES AND SPEAKING. ON NC AT 2L, O2 SAT 100%. NO S/SX OF SOB OR RESPIRATORY DISTRESS NOTED. V/S STABLE. DO CATHETER IN PLACE DRAINING VIA GRAVITY YELLOW URINE WITH NO SEDIMENT NOTED. RESUMED PT BACK ON IV INFUSION OF NS AT 150CC/HR AND PROTONIX AT 10CC/HR. ALL NEEDS MET AND ANTICIPATED. BED IN LOW POSITION. CALL LIGHT WITHIN REACH. WILL GIVE REPORT TO ONCOMING RN.
--- NOTE | 2018-12-08 18:32 | NUR ---
KUB BEING DONE AT BEDSIDE.
--- NOTE | 2018-12-08 19:15 | NUR ---
RECIEVED REPORTED FROM ROWDY RN'S. RESUMED CARE OF PT. PT POST OP SURGERY. ALERT & ORIENTED. NG TUBE W/ LOW INTERMITTENT SUCTION. LUNG SOUNDS CLEAR. LAC & LEFT FEMORAL CENTRAL LINE. ABD SURGICAL SITE C/D/I. PT SLEEPING.
--- NOTE | 2018-12-08 19:15 | NUR ---
PT TRANSFERED FROM 1L N/C TO ROOM AIR. O2 SATS 98%. PT TOLERATING WELL. WILL CONT TO MONITOR
[2018-12-08 20:00] VITALS: BP 123/76
--- NOTE | 2018-12-08 20:15 | NUR ---
PT PAIN 7/10 THROBBING FROM SURGICAL ABD AREA. ADMINSTERED NORCO 325MG W/ MEDS. PT TOLERATING WELL, VS WNL.
[2018-12-08 20:19] LABS: PLATELET COUNT 236 x10^3mcL (130-400)
[2018-12-08 20:38] LABS: BASOPHIL % 0 % (0-2); RED CELL DISTRIBUTION WIDTH 16.2 % (11.5-14.5)
--- NOTE | 2018-12-08 21:00 | NUR ---
PT SLEEPING. FLACC SCALE 0. REASSESS FOR NORCO ADMINISTERED, PT TOLERATING WELL. WILL CONT TO MONITOR.
--- NOTE | 2018-12-08 21:45 | NUR ---
PT COMPLAINING OF PAIN 06/25. FLACC SCALE 10. ADMINISTERED MORPHINE IVP 4MG. PT TOLERATING WELL. VS WNL.
--- NOTE | 2018-12-08 22:03 | NUR ---
REASSESS OF PAIN. PT SLEEPING TOLERATING WELL. FLACC = 0. WILL CONT TO MONITOR.
[2018-12-09] VITALS (7 sets, daily range): BP systolic 124–161; BP diastolic 82–109
--- NOTE | 2018-12-09 03:31 | NUR ---
PT C/O PAIN SURGICAL SITE 05/25. FLACC SCALE 810. ADMIN MORPHINE 4MG PRN. PT TOLERATED WELL. VS WNL. WILL CONT TO MONITOR
--- NOTE | 2018-12-09 03:35 | NUR ---
PT C/O PAIN ABDOMINAL SURGICAL AREA. 05/25. FLACC SCALE 06/25. ADMIN MORPHINE IVP 4MG PRN. PT TOLERATED WELL, VS WNL. WILL CONT TO MONITOR.
--- NOTE | 2018-12-09 04:15 | NUR ---
REASSESSED PAIN FROM IV MORPHINE. PT SLEEPING. FLACC SCALE = 0. NO S/S OF PAIN OR DISTRESS. WILL CONT TO MONITOR
--- NOTE | 2018-12-09 04:30 | NUR ---
PT WITH BLACK TAR COLORED HARD FORMED STOOL.
--- NOTE | 2018-12-09 04:45 | NUR ---
VIOLIN MAKER HAND @ BEDSIDE
[2018-12-09 05:26] LABS: BASOPHIL % 0.1 % (0-2); PLATELET COUNT 263 x10^3mcL (130-400)
[2018-12-09 05:29] LABS: RED CELL DISTRIBUTION WIDTH 16.4 % (11.5-14.5)
[2018-12-09 05:36] LABS: CALCIUM 7.3 mg/dL (8.5-10.1); CARBON DIOXIDE 26.5 mmol/L (21-32); CHLORIDE SERUM 108 mmol/L (98-107); CREATININE SERUM 1.3 mg/dL (0.7-1.3); GFR1 > 60 mL/min; GLUCOSE SERUM 138 mg/dL (74-106); POTASSIUM SERUM 4.3 mmol/L (3.5-5.1); SODIUM SERUM 142 mmol/L (136-145)
--- NOTE | 2018-12-09 07:10 | NUR ---
RECEIVED REPORT FROM JORGE ROONEY. WILL CONTINUE PT CARE AND TREATMENT.
--- NOTE | 2018-12-09 07:12 | NUR ---
REPORT GIVEN TO ONCOMING NEVIN MURILLO & ABRAHAM. ALL CONCERNS ADDRESSED.
--- NOTE | 2018-12-09 07:47 | NUR ---
AT BEDSIDE ASSESSING PT. NO NEW ORDERS.
--- NOTE | 2018-12-09 08:40 | NUR ---
PT C/O 05/25 PAIN. GIVEN PRN MORPINE 4MG IV PUSH.
--- NOTE | 2018-12-09 10:41 | NUR ---
KUB BEING DONE AT BEDSIDE.
--- NOTE | 2018-12-09 12:07 | NUR ---
Initial Nutrition Assessment Dx: Upper GI bleed PMHx: GERD, polysubstance abuse PSHx: Left ankle, left knee, right wrist sx procedure, facial fracture sx Labs: (12/09) Na 142, K 4.3, BG 138H, BUN 30H, Cr 1.3, WBC 14.3H, H/H 9.5L/28L Meds: Biaxin, Colace, D5-45%, Ferrous sulfate, Flagyl, folic acid, Lasix, Morphine, Henderson, Phoslo, Reglan, Tylenol, Zofran, Zosyn Diet: NPO, previously on CLD PO Intake: Ht: 64" (163 cm) Wt: 140# (64 kg) BMI: 24.2 (WNL) IBW: 130# %IBW: 108% UBW: pt. unable to recall; drowsy Age: 58 y/o male Food Allergies: NKFA Skin: Gastrix sx site Shen: 15 Edema: None GI: Last BM x 1 (12/08) formed, hard, tarry stool Per H&P, pt. admitted with nausea and multiple episodes of bloody emesis x 2 days associated with weakness and lethargy. Pt. was admitted to facility 2 days prior with similar symptoms, but left AMA. During previous admission, pt. underwent EGD x 2 with ulcer cauterization needs and was found to be H. Pylori +. Pt. underwent another EGD on 12/08 with findings of a stomach filled with blood and duodenal ulceration. Surgery was consulted and pt. underwent exploratory laparotomy with suturing of the bleeding ulceration. Pt. now POD #1 with notable medical improvement. KUB X-ray conducted on 12/08 with findings of NG tube correctly placed in the stomach. Other findings unremarkable per provider notes. No GI distress reported other than surgical site pain per RN notes. T: Appears malnourished/underweight, unintentional weight loss -10# x 1 month Problem with: No c/o N/V/D/C Problems with: Chewing: N Swallowing: N Current appetite: N/A Recent wt change: None %wt change: N/A Vitamin/Supplement use: None Special diet at home: Regular Physical activity: Ambulates without assistance at baseline Education: No diet education provided. Estimated Nutritional Needs Based on actual body weight 64 kg: Energy: 7075-6482 kcal/d (30-32 kcal/kg-wound healing) Protein: 77-96 g/d (1.2-1.5 g/kg)-wound healing and preservation of lean body mass Fluid: 4341-6355 ml/d (1 ml/kcal-fluid balance) or per doctor Nutrition Diagnosis 1. Inadequate PO intake r/t GI dysfunction and recent needs for surgery AEB documented PO intake/current diet order meets <75% estimated needs since admission. 2. Increased nutrient needs r/t altered metabolic demands AEB presence of abdominal surgical wound from s/p exploratory lap. Intervention/RD recommendations 1. When medically able, recommendation to advance diet to regular diet as tolerated. 2. When medically able, add Ensure Enlive BID for an additional 700 kcal and 40 g protein for increased nutrient needs. Monitor/Evaluate Goal: PO intake at least 75% of estimated needs Monitor: PO intake, Labs, GI function, diet tolerance F/U in 2-3 days as high risk (12/11-12/12)
--- NOTE | 2018-12-09 13:56 | NUR ---
GAVE REPORT TO STORMY ROONEY FOR PT TRANSFER. ALL QUESTIONS AND CONCERNS ANSWERED. PT IS CALM IN BED. V/S 143/88, HR 109, R 15, O2 SAT 96%. BREATHING EVEN AND UNLABORED. NO S/SX OF SOB OR RESPIRATORY DISTRESS. ABD BINDER IN PLACE AND DRESSING CDI. INTERMITTENT SUCTION CANNISTER HAS NET OUTPUT OF 150CC. URINE OUTPUT 1300CC. ALL NEEDS MET AND ANTICIPATED.
--- NOTE | 2018-12-09 14:41 | NUR ---
RECEIVED PATIENT FROM ICU NURSES AT THIS TIME. PATIENT ABLE TO AMBULATE FROM WHEELCHAIR TO BED WITH ASSIST. NO APPARENT DISTRESS NOTED. PATIENT A/O X4. ABLE TO MAKE NEEDS KNOWN. DENIES HEADACHE/DIZZINESS. BREATHING EVEN AND UNLABORED. NO RESPIRATORY DISTRESS NOTED. NG TO LEFT NARE IN PLACE. PATIENT DENIES CHEST PAIN AT THIS TIME. TELE [address] ABD SOFT AND PATIENT C/O 8/10 PAIN S/P PARTIAL GASTRIC RESECTION. INCISION COVERED WITH ABD PAD AND ABD BINDER. DRESSING CLEAN DRY AND INTACT. DO CATHETER IN PLACE DRAINING TO GRAVITY. PATIENT COOPERATIVE WITH NURSING CARE. ALL QUESTIONS AND CONCERNS ADDRESSED. ALL NEEDS ATTENDED TO. WILL CONTINUE TO MONITOR
--- NOTE | 2018-12-09 16:40 | NUR ---
SPOKE TO DR MCLAIN REGARDING PATIENTS NG TUBE AND DO. OKAY TO D/C NG TUBE. INITIATE BLADDER TRAINING AND DO CATHETER TO BE D/C TONIGHT. ALL QUESTIONS AND CONCERNS ADDRESSED. ALL NEEDS ATTENDED TO. WILL CONTINUE TO MONITOR
--- NOTE | 2018-12-09 17:00 | NUR ---
REMOVED NG TUBE FROM LEFT NARE AT THIS TIME. WILL CONTINUE TO MONITOR
--- NOTE | 2018-12-09 18:57 | NUR ---
PATIENT RESTING COMFORTABLY IN BED AT THIS TIME. NO DISTRESS OR DISCOMFORT NOTED. IV PATENT AND INTACT. LEFT FEMORAL CVC CLEAN AND NO SIGN OF INFECTION. ALL QUESTIONS AND CONCERNS ADDRESSED. SAFETY PRECAUTIONS MAINTAINED. ALL NEEDS ATTENDED TO. WILL ENDORSE ALL CARE TO TOBACCO SHAKER NURSE
--- NOTE | 2018-12-09 20:00 | NUR ---
RECEIVED PT IN BED AAO X4 VERBALIZED NEEDS, NO DISTRESS DENIES PAIN AT THIS TIME, INTACT DRESSING TO SURG INCISION SITE @ ABDL AREA, NO SIGNS OF BLEEDING F/C DRAINING FREELY, YELLOW COLORED URINE OUTPUT, TOLERATED ICE CHIPS, TELE #17 INPLACED SR/ST IN THE MONITOR NO CP O PRESSURE, SHIFT ASSESSEMENT DONE, IVF D5 1/2 NS INFUSING @ 60CC/HR IV ACCESS @ LAC PATENT NON INFIL, CONT TO MONITOR AND PROCEED TO CURRENT PLAN OF CARE.
--- NOTE | 2018-12-09 22:26 | NUR ---
MORPHINE 4MG IVP GIVEN FOR C/O MID ABDL PAIN 8/10 PER ASSESSMENT, V/S STABLE, CONT TO MONITOR.
--- NOTE | 2018-12-10 01:00 | NUR ---
STARTED BLADDER TRAINING CLAMPED / UNCLAMPED DO CATH NORM WELL WILL TO MONITOR, SLEEPING INTERMITTENT DURING THE SHIFT, NO CHANGES IVF INFUSING WELL.
[2018-12-10 05:31] VITALS: BP 101/74
--- NOTE | 2018-12-10 06:19 | NUR ---
DC'D DO CATH, INSTRUCTED TO LET THE NURSE KNOW ONCE VOIDED PROVIDED THE URINAL, WILL ENDORSE TO INCOMING SHIFT FOR F/U CARE.
[2018-12-10 06:41] LABS: CALCIUM 7.6 mg/dL (8.5-10.1); CARBON DIOXIDE 28.9 mmol/L (21-32); CHLORIDE SERUM 102 mmol/L (98-107); CREATININE SERUM 1.1 mg/dL (0.7-1.3); GFR1 > 60 mL/min; GLUCOSE SERUM 115 mg/dL (74-106); MAGNESIUM 2.1 mg/dL (1.8-2.4); PLATELET COUNT 313 x10^3mcL (130-400); POTASSIUM SERUM 3.9 mmol/L (3.5-5.1); SODIUM SERUM 138 mmol/L (136-145)
[2018-12-10 07:06] LABS: RED CELL DISTRIBUTION WIDTH 15.9 % (11.5-14.5)
--- NOTE | 2018-12-10 08:00 | NUR ---
RECIEVED PT. AWAKE ,ALERT AND ORIENTED,DENIES ANY PAIN AT THIS TIME. S/P EX- PLORLAP GASTRIC RESECTION 12/09. W/ MID ABD. DRESSING CDI W/ ABD. BINDER IN PLACE.ENCOURAGE TO TURN Q 2 HRS W/ ASSIST. AND HAVE DEEP BREATHING EXERCISES Q 1 HRS W/ AWAKE, INCENTIVE SPIROMITER PROVIDED.CONT.IV FLUIDS AND IV ANTIBIOTIC ORDERED.NO ACUTE DISTRESS NOTED. SCD APPLIED TO KAREN. LOWER EXTR.D/C DO CATH. AT 6 AM INSTRUCTED PT. TO USE URINAL FOR VOIDING CONT. TO OBSERVE PT. VOIDING.CALL LIGHT W/ IN REACH. WILL CONT. PLAN OF CARE.
[2018-12-10 08:26] VITALS: BP 121/79
--- NOTE | 2018-12-10 11:00 | NUR ---
PT. OUT OF BED TO CHAIR AND NORM. WELL FOR 1 HRS. DENIES ANY PAIN NO ACUTE DISTRESS NOTED.
[2018-12-10 11:18] LABS: BAND NEUTROPHIL 2 % (0-10); BASOPHIL 0 % (0-2); MONOCYTE 8 % (0-7)
[2018-12-10 11:19] LABS: SEGMENTED NEUTROPHILS 83 % (37-75)
[2018-12-10 11:22] LABS: rbc morphology (normal/abnorm) ABNORMAL (NORMAL); target cell (codocyte) 1+
[2018-12-10 11:55] VITALS: BP 150/92
[2018-12-10 16:32] VITALS: BP 130/88
--- NOTE | 2018-12-10 16:50 | NUR ---
PT. RESTING IN BED. NO ACUTE DISTRESS NOTED. CALL LIGHT W/ IN REACH.
--- NOTE | 2018-12-10 20:52 | NUR ---
PT CURRENTLY RESTING IN BED, C/O ABD PAIN 05/25, MEDICATED PER EMAR. A/O X4. TELE #17 SHOWING SINUS TACHYCARDIA. DENIES CHEST PAIN. PULSES PALPABLE IN ALL EXTREMITIES, NO EDEMA NOTED. LUNG SOUNDS CTA BILATERALLY, DENIES SOB. BOWEL SOUNDS HYPOACTIVE, LAST BM 12/08/18. ABD DRESSING IN PLACE WITH ABD BINDER. VOIDING WELL. GENERALIZED WEAKNESS, AMBULATORY WITH ASSIST. IV PATENT AND INTACT. FEMORAL LINE IN PLACE, SITE COVERED BY ABD DRESSING. BED IN LOWEST POSITION, SIDE RAILS UP X2, CALL LIGHT WITHIN REACH. WILL CONTINUE TO MONITOR.
[2018-12-10 22:42] VITALS: BP 110/75
--- NOTE | 2018-12-11 01:33 | NUR ---
PT CURRENTLY RESTING IN BED, NO ACUTE DISTRESS. WILL CONTINUE TO MONITOR.
[2018-12-11 05:03] VITALS: BP 106/73
--- NOTE | 2018-12-11 06:45 | NUR ---
PT SLEPT PERIODICALLY THROUGHOUT NIGHT, NO ACUTE DISTRESS. ALL NEEDS MET AND ATTENDED TO. NO SIGNIFICANT CHANGES. MEDICATED PAIN PER EMAR. IV PATENT AND INTACT. BED IN LOWEST POSITION, SIDE RAILS UP X2, CALL LIGHT WITHIN REACH. WILL ENDORSE CARE TO ONCOMING NURSE.
[2018-12-11 07:03] LABS: BASOPHIL % 0.2 % (0-2); PLATELET COUNT 388 x10^3mcL (130-400)
[2018-12-11 07:04] LABS: CALCIUM 7.8 mg/dL (8.5-10.1); CARBON DIOXIDE 31.9 mmol/L (21-32); CHLORIDE SERUM 101 mmol/L (98-107); CREATININE SERUM 0.9 mg/dL (0.7-1.3); GFR1 > 60 mL/min; GLUCOSE SERUM 133 mg/dL (74-106); POTASSIUM SERUM 3.5 mmol/L (3.5-5.1); SODIUM SERUM 139 mmol/L (136-145)
[2018-12-11 07:42] LABS: RED CELL DISTRIBUTION WIDTH 15.8 % (11.5-14.5)
--- NOTE | 2018-12-11 08:00 | NUR ---
AWAKE,ALERT AND ORIENTED DENIES ANY PAIN AT THIS TIME,S/P EXPLORLAP GASTRIC RESECTION 12/09 W/ MID ABD. DRESSING CDI W/ ABD. BINDER,LEFT FEMORAL TRIPPLE LUMEN INTACT.ENCOURAGE TO TURN Q 2 HRS AND OOB TO CHAIR AT BEDSIDE ,VOIDING IN URINAL.CONT. IV FLUIDS AND IV ANTIBIOTIC ORDERED.SCD APPLIED TO KAREN. LOWER EXTR.NO ACUTE RESP. DISTRESS NOTED. WILL CONT. PLAN OF CARE.
--- NOTE | 2018-12-11 08:50 | NUR ---
PT. C/O NAUSEATED AND VOMITTED SMALL AMT. OF GREEN EMESIS MEDICATED WITH ZOFRAN ORDERED.MADE PT. COMFORTABLE IN BED. CALL LIGHT W/ IN REACH.
[2018-12-11 10:33] VITALS: BP 102/71; BP 128/73
--- NOTE | 2018-12-11 13:04 | NUR ---
PT. ENCOURAGE OUT OF BED TO CHAIR ASSISTED TO SIT UP IN CHAIR AT BEDSIDE FOR LUNCH .NORM. WELL CALL LIGHT W/ IN REACH.
--- NOTE | 2018-12-11 14:00 | NUR ---
DR. MCLAIN WAS HERE AND SEEN THE PT. AND NOTIFIED PT. C/O NAUSEA/VOMITING SINCE FULL LIQUID DIET STARTED.DR. MCLAIN MADE AWARE W/ ORDERS RECIEVED.
[2018-12-11 14:54] VITALS: BP 118/69
[2018-12-11 16:41] VITALS: BP 99/69
--- NOTE | 2018-12-11 17:00 | NUR ---
PT. WENT DOWN TO CT ABD. PER W/C.
--- NOTE | 2018-12-11 17:40 | NUR ---
BACK FROM CT. ABD. PER W/C MADE COMFORTABLE IN BED. CALL LIGHT W/ IN REACJ DENIES ANY PAIN THE WHOLE DAY.INSTRUCTED PT.NOT TO EAT W/ ORDERS NPO AT THIS TIME. PT. MADE AWARE.
--- NOTE | 2018-12-11 20:25 | NUR ---
PT CURRENTLY RESTING IN BED, NO ACUTE DISTRESS. A/O X4. TELE #17 SHOWING SINUS TACHYCARDIA, DENIES CHEST PAIN. PULSES PALPABLE IN ALL EXTREMITIES, NO EDEMA NOTED. LUNG SOUNDS CTA BILATERALLY, DENIES SOB. BOWEL SOUNDS HYPOACTIVE, LAST BM 12/08/18, PASSING GAS. PT REPORTS MILD NAUSEA. VOIDING WELL. MILD GENERALIZED WEAKNESS, AMBULATORY. ABD INCISION, DRESSING AND BINDER IN PLACE. IV PATENT AND INTACT. FEMORAL LINE PATENT AND INTACT. BED IN LOWEST POSITION, SIDE RAILS UP X2, CALL LIGHT WITHIN REACH. WILL CONTINUE TO MONITOR.
--- NOTE | 2018-12-11 20:27 | NUR ---
RECEIVED RESULTS OF CT ABD, DR GRIMM INFORMED. WILL CONTINUE TO MONITOR.
[2018-12-11 20:36] VITALS: BP 134/81
--- NOTE | 2018-12-11 22:14 | NUR ---
SPOKE TO DR MCLAIN REGARDING CT ABD RESULTS, RECEIVED ORDERS FOR FOLLOW UP KUB 12/12/18 0600. PT CURRENTLY RESTING IN BED, NO ACUTE DISTRESS. WILL CONTINUE TO MONITOR.
--- NOTE | 2018-12-12 01:32 | NUR ---
PT CURRENTLY RESTING IN BED, NO ACUTE DISTRESS. WILL CONTINUE TO MONITOR.
[2018-12-12 04:47] VITALS: BP 137/77
--- NOTE | 2018-12-12 06:03 | NUR ---
PT SLEPT PERIODICALLY THROUGHOUT NIGHT, NO ACUTE DISTRESS. ALL NEEDS MET AND ATTENDED TO. NO SIGNIFICANT CHANGES. IV PATENT AND INTACT. MEDICATED PAIN PER EMAR. BED IN LOWEST POSITION, SIDE RAILS UP X2, CALL LIGHT WITHIN REACH. WILL ENDORSE CARE TO ONCOMING NURSE.
--- NOTE | 2018-12-12 06:23 | NUR ---
RECEIVED ORDERS FROM DR MCLAIN TO INCREASE TPN RATE TO 75ML/HR. WILL ENDORSE TO ONCOMING NURSE.
[2018-12-12 07:00] LABS: CALCIUM 7.9 mg/dL (8.5-10.1); CARBON DIOXIDE 32.4 mmol/L (21-32); CHLORIDE SERUM 99 mmol/L (98-107); CREATININE SERUM 0.9 mg/dL (0.7-1.3); GFR1 > 60 mL/min; GLUCOSE SERUM 125 mg/dL (74-106); MAGNESIUM 2.1 mg/dL (1.8-2.4); POTASSIUM SERUM 3.4 mmol/L (3.5-5.1); SODIUM SERUM 134 mmol/L (136-145)
[2018-12-12 07:06] LABS: BASOPHIL % 0.1 % (0-2)
[2018-12-12 07:20] LABS: PLATELET COUNT 432 x10^3mcL (130-400); RED CELL DISTRIBUTION WIDTH 15.2 % (11.5-14.5)
--- NOTE | 2018-12-12 08:00 | NUR ---
AWAKE,ALERT AND ORIENTED PT. ANXIOUS STATED HE IS HUNGRY ,EXPLAINED TO PT. NOTHING TO EAT AT THIS TIME MD ORDERED.DENIES N/V AT THIS TIME CONT. ON TPN INFUSING WELL TO LEFT FEMORAL TRIPPLE LUMEN.S/P EXPLOR LAP GASTRIC ULCER 12/09 MID ABD. DRESSING CDI W/T ABD. BINDER.ENCOURAGE OOB AND AMBULATION. SCD ON.TO KAREN. LOWER EXTR.NO ACUTE DISTRESS NOTED. CALL LIGHT W/ IN REACH.WILL CONT. PLAN OF CARE.
[2018-12-12 08:07] VITALS: BP 120/72
--- NOTE | 2018-12-12 09:00 | NUR ---
PT. VERY UPSET BECAUSE PT. WAS NPO MD ORDERED HE KEEP ASKING FOODS ,KOSTA NORMAN HERE AND SEEN THE PT. AND NOTIFIED REGARDING PT. WANT TO EAT BECAUSE HE IS VERY HUNGRY. KOSTA NORMAN SPEAKED TO PT. AND MADE AWARE NOT TO EAT UNTIL DR MCLAIN THE SURGEON WILL BE HERE TO SEE HIM.
[2018-12-12 12:23] VITALS: BP 145/89
--- NOTE | 2018-12-12 13:17 | NUR ---
DR. MCLAIN HERE AND SEEN THE PT. AND SPEAKED TO PT.AND EXPLAINED REGARDING HIS SURGERY GASTRIC ULCER AND PT. VERBALIZED UNDERSTANDING OF DR. MCLAIN EXPLAINED..ABD.MID DRESSING CHANGED DONE AND D/C FEMORAL CATH. TRIPPLE LUMEN IN LEFT FEMORAL ORDERED. PT. STARTED ON CLEAR LIQUID DIET ORDERED. OOB TO CHAIR FOR LUNCH.CALL LIGHT W/ IN REACH.
--- NOTE | 2018-12-12 13:22 | NUR ---
PT. CONT. ON PPN INFUSING WELL NOW IN PHERIPERAL IV ACCES IN LEFT HAND AND ZOSYN IVPB ANTIBIOTIC INFUSING ALSO IN LEFT HAND VERIFIED TO PHARMACY OK TO GIVE TOGETHER THE PPN AND ZOSYN AT THE SAME TIME ITS COMPATIBLE.CHARGE NURSE MADE AWARE TRISHA ROONEY.
--- NOTE | 2018-12-12 14:35 | NUR ---
Follow-up Nutrition Assessment Dx: Upper GI bleed, duodenal ulcer Labs:(12/12) Na:134L, K:204L, BH, Ca:7.9L, WBC:14.2H, H/H:8.1/25L Meds: Colace, Ferrous sulfate, Folic acid, Humulin, Morphine, Phoslo, Protonix, Reglan, Zosyn Current Nutrition Support: PPN 4.25% AA, D:10% at 75ml/hr Note: pt just advanced to clear liquid diet L:80% Weights:(12/09) 140#, 64kg Skin: dressing to abdomen CDI. + binder s/p ex-lap 12/09 Edema: none noted Last BM: 12/08 Per progress note 12/12, pt was nauseated and placed on PPN. Pt denies any nausea or abd pain at this time. Plan is to start oral feeding once cleared by surgeon. Current PPN: 4.25% AA:10% at 75ml/hr provides 918kcal and 76.5g protein via peripheral line. GIR:1.95mg/kg/min During visit, pt was seen laying in bed with PPN running as ordered. Pt was just advanced to clear liquid diet and ate 80%. Estimated Nutritional Needs based on actual body weight:64kg Energy: 1900-2000kcal/day (30-32kcal/kg for wound healing) Protein: 77-96g/day (1.2-1.5g/kg for wound healing and preservation of LBM) Fluid:1900-2000ml/day (1ml/kcal) or per doctor Nutrition Diagnosis 1. Inadequate PPN intake related to low goal rate as evidenced by current PPN onlt meeting 48% caloric needs and 80% protein needs. 2. Inadequate PO intake related to GI dysfunction and recent needs for surgery as evidenced by documented PO intake/current diet order meets <75% estimated needs admission (ongoing) 3. Increased nutrient needs related to altered metabolic demands as evidenced by prescence of abd surigcal wound s/p exploratory lap (ongoing) Intervention 1. If pt is to continue PPN, recommend increase rate to 100ml/hr, AA:4.25%, D:10% to provide 1224kcal, 102g protein per day to better meet pts estimated needs. This meets 64% caloric needs and 106% of protein. GIR:2.6mg/kg/min. 2. If PPN is to be discontinued, recommend continue to advance diet as tolerated. Monitor/Evaluate Previous goal: PO intake at least 75% of estimated needs (N/A pt NPO on PPN) Goal: PPN intake at least 75% of estimated needs /diet advancement Monitor: PPN intake/tolerance, diet advancement, Labs, GI function F/U in 2-3 days as high risk:12/14-
[2018-12-12 16:54] VITALS: BP 125/78
--- NOTE | 2018-12-12 18:00 | NUR ---
CLEAR LIQUID DIET NORM,WELL DENIES N/V
--- NOTE | 2018-12-12 19:45 | NUR ---
RECEIVED PT IN BED. RESP EQUAL AND UNLABORED, NO REPOTS OF CP OR SOB. NO ABD DISCOMFORT REPORTED. WILL CONTINUE TO MONITOR
[2018-12-12 20:30] VITALS: BP 122/71
--- NOTE | 2018-12-13 00:30 | NUR ---
RECKODY PT FROM NURSR NEVIN PAEZ. PY AOX2 IN BED AWAKE. PT HAS NO COMPLAINTS AT THIS TIME. DENIES ANY PAIN AND NO S/S OF DITRESS NOTED. WILL CONTINUE TO MONITOR
[2018-12-13 06:32] VITALS: BP 136/85
[2018-12-13 07:08] LABS: BASOPHIL % 0.2 % (0-2)
--- NOTE | 2018-12-13 07:10 | NUR ---
AAO X4.DENIES ANY PAIN/DISCOMFORT AT THE MOMENT.LUNGS CLEAR.ON ST ON THE MONITOR.IV ZOSYN GOING.ALSO PPN AT 75 ML/HR INFUSING WELL.ABD'L INCISSION WITH DRESSING CDI.S/P EXPLORE LAP ON 12/08.CALL LIGHT WITHIN REACH.INSTRUCTED TO CALL FOR ANY PAIN/DISCOMFORT.WILL CONTINUE TO MONITOR PT.
--- NOTE | 2018-12-13 07:16 | NUR ---
WARM TRANSFER COMPLETE, NO DISTRESS NOTED. REPORT GIVEN TO ADITI
[2018-12-13 07:49] LABS: PLATELET COUNT 544 x10^3mcL (130-400)
[2018-12-13 08:49] LABS: CARBON DIOXIDE 28.9 mmol/L (21-32); CHLORIDE SERUM 99 mmol/L (98-107); CREATININE SERUM 0.8 mg/dL (0.7-1.3); GFR1 > 60 mL/min; GLUCOSE SERUM 100 mg/dL (74-106); POTASSIUM SERUM 3.5 mmol/L (3.5-5.1); SODIUM SERUM 137 mmol/L (136-145)
[2018-12-13 09:06] VITALS: BP 131/80
--- NOTE | 2018-12-13 12:00 | NUR ---
CLEANED AND CHANGED DRESSING.ALSO TOOK PICTURES ON THE ABDOMINAL INCISSION.
[2018-12-13 12:54] VITALS: BP 131/82
[2018-12-13 13:01] VITALS: BP 131/82
[2018-12-13 13:12] VITALS: BP 131/82
--- NOTE | 2018-12-13 14:24 | NUR ---
PT D/C TO HOME IV AND MONITOR D/C'D.RX AND D/C INSTRUCTION GIVEN PT VERBALIZES UNDERSTANDING.AWAITING FOR BROTHER TO CONSULTANT DIETITIAN PT.
--- NOTE | 2018-12-13 14:39 | NUR ---
BROTHER DOWNSTAIRS TO C ARCHITECT PT.WENT DOWN VIA WHEELCHAIR ACCOMPANIED BY COUNTER SERVER.
== END 2018-12-13 14:41 | disposition home or self-care (01) | DRG 220 ==
LOC: ED 01:57 → IC 04:31 → DU 04:31 → IC 04:41 → DU 12-09 14:27
PROVIDERS: Anesthesiology; Emergency Medicine; Internal Medicine; Pediatrics Pediatric Cardiology; Surgery; ADMIT Internal Medicine
PROC: 0DT90ZZ Resection of Duodenum, Open Approach (ICD-10-PCS; 2018-12-08)
PROC: 0W3P8ZZ Control Bleeding in Gastrointestinal Tract, Via Natural or Artificial Opening Endoscopic (ICD-10-PCS; 2018-12-08)
PROC: 30233N1 Transfusion of Nonautologous Red Blood Cells into Peripheral Vein, Percutaneous Approach (ICD-10-PCS; 2018-12-08)
PROC: 06HY33Z Insertion of Infusion Device into Lower Vein, Percutaneous Approach (ICD-10-PCS; principal; 2018-12-08 10:30)
PROC: 0DB60ZZ Excision of Stomach, Open Approach (ICD-10-PCS; 2018-12-08 10:30)
DX: K26.4 Chronic or unspecified duodenal ulcer with hemorrhage (principal); N17.0 Acute kidney failure with tubular necrosis; E43 Unspecified severe protein-calorie malnutrition; D62 Acute posthemorrhagic anemia; I74.8 Embolism and thrombosis of other arteries; E83.41 Hypermagnesemia; E83.39 Other disorders of phosphorus metabolism; B96.81 Helicobacter pylori [H. pylori] as the cause of diseases classified elsewhere; R68.0 Hypothermia, not associated with low environmental temperature; R55 Syncope and collapse; K21.0 Gastro-esophageal reflux disease with esophagitis; F12.10 Cannabis abuse, uncomplicated; F15.10 Other stimulant abuse, uncomplicated; F11.10 Opioid abuse, uncomplicated; F10.11 Alcohol abuse, in remission; N18.9 Chronic kidney disease, unspecified; F17.210 Nicotine dependence, cigarettes, uncomplicated; Z68.26 Body mass index [BMI] 26.0-26.9, adult; Z91.14 Patient's other noncompliance with medication regimen
CPT/HCPCS: 43235; 82962; 83880; 84439; 87804; 94150; C9113; G0480; J0330; J0610; J0690; J1170; J1200; J1610; J1940; J2001; J2250; J2270; J2310; J2405; J2543; J2704; J2710; J2765; J3010; J3490; J7030; J7040; J7050; J7070; J7120; J7131; P9016; P9047; Q0092